=== PATIENT | male | born 1985 | race Caucasian/White ===

== ENCOUNTER 2016-12-07 12:27 | Emergency (ER) | payer OTHER ==
[~2016-12-07] VITALS: Ht 177.8 cm; Wt 75.0 kg
[2016-12-07 12:37] VITALS: BP 126/83; PULSE 112; RESP 22; TEMP 98.3; O2SAT 98
[2016-12-07] MEDS ORDERED: SODIUM CHLORIDE 0.9% FLUSH 10 ML FLUSH IVF PRN (12:45)
[2016-12-07] MEDS ORDERED: SODIUM CHLOR 0.9% 1000 ML INJ 1,000 ML IV ONE (12:45)
[2016-12-07 12:46] VITALS: RESP 18; O2SAT 97
--- NOTE | 2016-12-07 12:47 | PD ---
HPI Chief Complaint: Chest Pain Time Seen by Provider: 12:42 Travel History International Travel<30 days: No Contact w/Intl Traveler<30days: No Traveled to known affect area: No History of Present Illness HPI 31-year-old male presents to the emergency department in police custody for evaluation of midsternal chest pain that started just prior to arrival. Apparently, the patient was running from the police. He ran hard for approximately 4 minutes. Upon completion a running, he reported midsternal chest pain. He states he has had this pain in the past. The last time was approximately one week ago. The patient denies any cardiac history. He denies any fevers or chills. He states he is short of breath from running. No abdominal pain. No nausea, vomiting, diarrhea. Patient states the pain is worse with laying down. Patient does report history of IV drug use. He last used IV heroin earlier today. Patient also states that his father had heart problems at age 40. Patient is diaphoretic. However, patient has been running. Patient does report a history DVT in the right arm which she was subsequently admitted to the hospital for. He denies any recent surgery or travel. No leg edema. No hemoptysis. [facility] Social History Alcohol Use: Yes Tobacco Use: Yes Substance Use: Yes Allergies-Medications (Allergen,Severity, Reaction): Coded Allergies: Penicillin (Verified Allergy, Intermediate, 12/07/16) Reported Meds & Prescriptions Reported Meds & Active Scripts Active No Active Prescriptions or Reported Medications Review of Systems Except as stated in HPI: all other systems reviewed are Neg Physical Exam Narrative GENERAL: Well-nourished, well-developed male patient, afebrile. SKIN: Focused skin assessment warm/dry. Patient is diaphoretic on exam. HEAD: Normocephalic. Atraumatic EYES: No scleral icterus. No injection or drainage. NECK: Supple, trachea midline. No JVD or lymphadenopathy. CARDIOVASCULAR: Regular rate without murmurs, gallops, or rubs. Bilateral radial and pedal pulses are 2+. Patient is tachycardic heart rate 112. RESPIRATORY: Breath sounds equal bilaterally. No accessory muscle use. Lungs sounds are clear to auscultation GASTROINTESTINAL: Abdomen soft, non-tender, nondistended. MUSCULOSKELETAL: No cyanosis, or edema. Midsternal chest pain is reproducible with palpation. BACK: Nontender without obvious deformity. No CVA tenderness. Data Data Last Documented VS Vital Signs Date Time Temp Pulse Resp B/P Pulse Ox O2 Delivery O2 Flow Rate FiO2 12/07/16 12:46 18 97 Room Air 12/07/16 12:41 103 12/07/16 12:37 98.3 126/83 Orders Electrocardiogram (12/07/16 12:39) Basic Metabolic Panel (Bmp) (12/07/16 12:39) Ckmb (Isoenzyme) Profile (12/07/16 12:39) Complete Blood Count With Diff (12/07/16 12:39) D-Dimer (12/07/16 12:39) Magnesium (Mg) (12/07/16 12:39) Prothrombin Time / Inr (Pt) (12/07/16 12:39) Act Partial Throm Time (Ptt) (12/07/16 12:39) Troponin I (12/07/16 12:39) Chest, Single Ap (12/07/16 12:39) Ecg Monitoring (12/07/16 12:39) Bilateral Bp Monitoring (12/07/16 12:39) Iv Access Insert/Monitor (12/07/16 12:39) Oximetry (12/07/16 12:39) Oxygen Administration (12/07/16 12:39) Sodium Chloride 0.9% Flush (Ns Flush) (12/07/16 12:45) Sodium Chlor 0.9% 1000 Ml Inj (Ns 1000 M (12/07/16 12:45) CKMB (12/07/16 12:50) CKMB% (12/07/16 12:50) Labs Laboratory Tests Test 12/07/16 12:50 White Blood Count 5.9 TH/MM3 Red Blood Count 4.83 MIL/MM3 Hemoglobin 14.2 GM/DL Hematocrit 40.7 % Mean Corpuscular Volume 84.4 FL Mean Corpuscular Hemoglobin 29.4 PG Mean Corpuscular Hemoglobin 34.9 % Concent Red Cell Distribution Width 12.6 % Platelet Count 244 TH/MM3 Mean Platelet Volume 7.4 FL Neutrophils (%) (Auto) 57.6 % Lymphocytes (%) (Auto) 30.6 % Monocytes (%) (Auto) 9.6 % Eosinophils (%) (Auto) 1.6 % Basophils (%) (Auto) 0.6 % Neutrophils # (Auto) 3.4 TH/MM3 Lymphocytes # (Auto) 1.8 TH/MM3 Monocytes # (Auto) 0.6 TH/MM3 Eosinophils # (Auto) 0.1 TH/MM3 Basophils # (Auto) 0.0 TH/MM3 CBC Comment DIFF FINAL Differential Comment Prothrombin Time 10.5 SEC Prothromb Time International 1.0 RATIO Ratio Activated Partial 25.5 SEC Thromboplast Time D-Dimer Quantitative (PE/DVT) 0.29 MG/L FEU Sodium Level 140 MEQ/L Potassium Level 3.8 MEQ/L Chloride Level 105 MEQ/L Carbon Dioxide Level 25.3 MEQ/L Anion Gap 10 MEQ/L Blood Urea Nitrogen 12 MG/DL Creatinine 1.14 MG/DL Estimat Glomerular Filtration 75 ML/MIN Rate Random Glucose 136 MG/DL Calcium Level 9.4 MG/DL Magnesium Level 2.2 MG/DL Total Creatine Kinase 197 U/L Creatine Kinase MB 2.7 NG/ML Troponin I LESS THAN 0.02 NG/ML MDM Medical Decision Making Medical Screen Exam Complete: Yes Emergency Medical Condition: Yes Medical Record Reviewed: Yes Interpretation(s) Last Impressions Chest X-Ray 12/07/16 1239 Signed Impressions: Service Date/Time: Wednesday, December 07, 2016 13:25 - CONCLUSION: No acute disease. Naveed Zhang MD Differential Diagnosis Chest wall pain versus pneumothorax versus ACS versus endocarditis versus septic emboli Narrative Course 31-year-old male history of IV drug use, last used heroin IV today, who is running from the police presents with midsternal chest pain, worse with palpation and movement. Patient does report history of DVT. He is tachycardic and diaphoretic on exam. However, the patient has been running from the police. EKG shows sinus rhythm, heart rate 99, no acute ST changes. CBC, BMP, CK, troponin, magnesium, PTT and PT/INR, d-dimer are ordered and pending. Chest x-ray is ordered and pending. Patient is given NS 1 liter IV bolus. CBC is unremarkable. BMP shows no acute abnormal. CK is 197. Troponin is less than 0.02. Magnesium is 2.2. Coags are unremarkable. D-dimer is 0.29. Chest x-ray shows no acute disease. Patient is stable. Patient is instructed to follow his primary care physician. He is to return for any acute worsening of symptoms. The patient verbalizes agreement and understanding. Patient will be discharged to police custody. The patient was discharged in stable condition with instructions, including return instructions and follow up instructions. Diagnosis Primary Impression: Chest wall pain Referrals: Primary Care Physician call for appointment Patient Instructions: Chest Wall Pain (ED), General Instructions Additional Instructions: Follow-up with your primary care physician. Return to the emergency department for any acute worsening of symptoms. Med/Other Pt SpecificInfo: No Change to Meds Scripts No Active Prescriptions or Reported Meds Disposition: 01 DISCHARGE HOME Condition: Stable FreddyJoyce Dec 07, 2016 12:47
[2016-12-07 13:03] LABS: AUTOMATED NEUTROPHIL # 3.4 TH/MM3 (1.8-7.7); BASOPHIL % 0.6 % (0.0-2.0); EOSINOPHIL # 0.1 TH/MM3 (0-0.4); EOSINOPHIL % 1.6 % (0.0-4.0); HEMATOCRIT 40.7 % (39.0-51.0); HEMO FLAGS DIFF FINAL; LYMPH % 30.6 % (9.0-44.0); LYMPHOCYTE # 1.8 TH/MM3 (1.0-4.8); MEAN CELL VOLUME 84.4 FL (80.0-100.0); MEAN CORPUSCULAR HEMOGLOBIN 29.4 PG (27.0-34.0); MEAN CORPUSCULAR HGB CONC 34.9 % (32.0-36.0); MONO % 9.6 % (0.0-8.0); NEUT % 57.6 % (16.0-70.0); PLATELET COUNT 244 TH/MM3 (150-450); RED BLOOD COUNT 4.83 MIL/MM3 (4.50-5.90); RED CELL DISTRIBUTION WIDTH 12.6 % (11.6-17.2); WHITE BLOOD COUNT 5.9 TH/MM3 (4.0-11.0)
[2016-12-07 13:20] LABS: APTT (PATIENT) 25.5 SEC (24.3-30.1); PROTHROMBIN TIME - PATIENT 10.5 SEC (9.8-11.6)
[2016-12-07 13:24] LABS: ANION GAP 10 MEQ/L (5-15); BICARBONATE 25.3 MEQ/L (21.0-32.0); BLOOD UREA NITROGEN 12 MG/DL (7-18); CHLORIDE 105 MEQ/L (98-107); GLOMERULAR FILTRATION RATE 75 ML/MIN (>89); MAGNESIUM 2.2 MG/DL (1.5-2.5); POTASSIUM 3.8 MEQ/L (3.5-5.1); SODIUM (NA) 140 MEQ/L (136-145)
[2016-12-07 13:27] LABS: CREATINE KINASE 197 U/L (39-308)
[2016-12-07 13:39] LABS: CKMB 2.7 NG/ML (0.5-3.6)
--- NOTE | 2016-12-07 14:03 | RADRPT ---
EXAM DATE/TIME: 12/07/2016 13:25 [facility] COMPARISON: No previous studies available for comparison. INDICATIONS : Short of breath. Chest pain. MEDICAL HISTORY : None. SURGICAL HISTORY : None. ENCOUNTER: Initial ACUITY: 1 day PAIN SCORE: 8/10 LOCATION: Bilateral chest FINDINGS: A single view of the chest demonstrates the lungs to be symmetrically aerated without evidence of mas s, infiltrate or effusion. The cardiomediastinal contours are unremarkable. Osseous structures are intact. CONCLUSION: No acute disease. Naveed Zhang MD on December 07, 2016 at 14:00 Board Certified Radiologist. This report was verified electronically.
[2016-12-07 14:18] VITALS: BP 122/59; PULSE 85; RESP 18; O2SAT 98
[2016-12-07] MEDS ORDERED: IBUPROFEN 600 MG TAB PO ONE (14:30)
--- NOTE | 2016-12-08 10:05 | EKG ---
Date Performed: 12/07/2016 Time Performed: 12:39:03 PTAGE: 31 years EKG: Sinus rhythm NORMAL ECG NO PREVIOUS TRACING DOCTOR: Rigo Stewart Interpretating Date/Time 12/08/2016 10:04:53
== END 2016-12-07 14:47 ==
LOC: NEPE 12:27
DX: R07.89 Other chest pain (principal); R61 Generalized hyperhidrosis; R00.0 Tachycardia, unspecified; F11.20 Opioid dependence, uncomplicated; Z72.0 Tobacco use
CPT/HCPCS: 71010; 80048; 82550; 82552; 83735; 84484; 85025; 85379; 85610; 85730; 93005; 96360; 99285; J7030